=== PATIENT | female | born 1945 | race Caucasian/White ===

== ENCOUNTER 2019-04-14 12:01 | Inpatient (IN) ==
[2019-04-14] MEDS ORDERED: NS 1,000 ML IV ONE ×2 (12:08→14:18)
[2019-04-14 13:28] LABS: BASO# 0.02 X1000 (0.0-0.2); BASO% 0.1 % (0.0-0.8); HEMATOCRIT 34.9 % (37.0-47.0); HEMOGLOBIN 11.2 g/dL (12.0-16.0); IMM GRAN# 0.03 X1000 (0.0-0.04); IMM GRAN% 0.2 % (0.0-0.5); MCH 30.1 PG (27-31); MCHC 32.1 g/dL (33-37); MCV 93.8 FL (81-99); MPV 10.6 FL (7.4-10.4); NEUT# 12.68 X1000 (1.4-6.5); NEUT% 89.7 % (42.2-75.2); PLT 222 X1000 (130-400); RBC 3.72 XMIL (4.2-5.4); RDW 12.7 % (11.5-14.5); WBC 14.13 X1000 (4.8-10.8)
[2019-04-14 13:47] LABS: URINE SOURCE CLEAN CATCH
[2019-04-14 13:48] LABS: ALBUMIN 3.3 g/dL (3.5-5.0); CALCIUM 8.5 mg/dL (8.8-10.2); POTASSIUM 4.1 mmol/L (3.5-5.1); TOTAL BILIRUBIN 0.5 mg/dL (0.20-1.00)
[2019-04-14 13:50] LABS: BILIRUBIN URINE NEGATIVE (NEGATIVE); BLOOD URINE TRACE (NEGATIVE); COLOR YELLOW; GLUCOSE URINE 150 mg/dL (NEGATIVE); KETONE URINE NEGATIVE (NEGATIVE); LEUKOCYTES URINE MODERATE (NEGATIVE); NITRITE URINE NEGATIVE (NEGATIVE); PROTEIN URINE 70 mg/dL (NEGATIVE); TURBIDITY URINE HAZY (CLEAR); UROBILINOGEN URINE NORMAL (NORMAL)
[2019-04-14 13:52] LABS: UR EPITHELIAL CELLS <10 /HPF (<10); URINE BACTERIA 4+ /HPF; URINE RBC <10 /HPF (<10); URINE WBC 20-40 /HPF (<10)
--- NOTE | 2019-04-14 13:58 | Diag Imaging Result Doc PS360 ---
EXAM: CT ABDOMEN/PELVIS W/O CONTRAST 04/14/2019 HISTORY: left side abdominal pain TECHNIQUE: This exam was performed using automated exposure control, adjustment of mA or kV according to patient size, and/or use of iterative reconstruction technique. COMMENT: The current study is compared with the previous examination of 02/18/2019. There are some fibrotic appearing opacities in the lingula which have not changed since the previous study. There is also apparent fibrosis in the medial posterior left costophrenic sulcus. There is some perinephric stranding and particularly on the left side. This is similar in appearance to the previous study. There is no evidence of nephrolithiasis. There is no evidence of hydronephrosis. There is a right adrenal adenoma which has not changed since the previous study. There is some residual contrast medium present in the right colon. There are diverticula in the left colon. There is no evidence of acute diverticulitis. There is no free fluid or free air. There is some gas in the urinary bladder. The appendix is normal in appearance. The regional skeleton is stable in appearance. There has been hysterectomy. IMPRESSION: The possibility of pyelonephritis on the left cannot be excluded otherwise are has been no apparent change since the previous study. Electronically signed by Kar Lucero 04/14/2019 1:55 PM
--- NOTE | 2019-04-14 14:17 | PROVIDER DOCUMENTATION ---
This chart was entered by Amy Sloan Scribe, acting as scribe for Heidy Ayers MD. HPI-Abdominal Pain/GI Problem - General Chief Complaint: Abdominal Pain Stated Complaint: weakness n/v/d abd pain Time Seen by Provider: 04/14/19 12:06 Source: patient, family (daughter), EMS Allergies/Adverse Reactions: Patient Allergies Allergy/AdvReac Type Severity Reaction Status Date / Time amoxicillin trihydrate * Allergy RASH Verified 08/03/18 06:03 [From Amoxil] codeine AdvReac NAUSEA Verified 08/03/18 06:03 propoxyphene HCl * AdvReac NAUSEA/VOMI Verified 08/03/18 06:03 [From Darvon] TING Home Medications: Home Medication List Medication Instructions Recorded Confirmed Last Taken Type Insulin Detemir [Levemir] 80 units SUBQ HS 03/27/14 08/03/18 08/02/18 22:00 History 60 units Biotin [Nail-Ex] 5,000 mcg PO DAILY 02/28/15 08/03/18 08/02/18 20:00 History Levothyroxine Sodium [Levoxyl] 100 mcg PO DAILY 05/08/16 08/03/18 08/02/18 20:00 History Sertraline HCl [Zoloft] 100 mg PO HS 05/08/16 08/03/18 08/02/18 20:00 History Insulin Aspart [Novolog Flexpen] 10 - 20 unit SQ AC 11/10/17 08/03/18 08/02/18 History 12 units Furosemide [Lasix] 1 tab PO DAILY 03/12/18 08/03/18 08/02/18 08:00 History Potassium Chloride [Klor-Con M20] 20 meq PO DAILY 03/12/18 08/03/18 08/02/18 08:00 History Calcium Polycarbophil [Fiber] 625 mg PO DAILY 04/09/18 08/03/18 08/02/18 20:00 History Dexlansoprazole [Dexilant] 60 mg PO QAM 04/09/18 08/03/18 08/02/18 08:00 History Dicyclomine [Bentyl] 2 tab PO BID PRN 04/09/18 08/03/18 04/13/18 08:00 History Iron 65 mg PO DAILY 04/09/18 08/03/18 08/02/18 20:00 History LISINOpril [Prinivil] 10 mg PO DAILY 04/09/18 08/03/18 08/02/18 08:00 History Multivitamin with Minerals [One 1 each PO DAILY 04/09/18 08/03/18 08/02/18 08:00 History Daily Adults] Oxybutynin [Ditropan] 10 mg PO DAILY 04/09/18 08/03/18 08/02/18 20:00 History Ciprofloxacin HCl [Cipro] 750 mg PO BID 07/28/18 08/03/18 08/01/18 History Phenazopyridine HCl [Azo] 95 mg PO DAILY 07/28/18 08/03/18 08/02/18 20:00 History Oxycodone HCl/Acetaminophen 1 ea PO PRN PRN #14 tab 08/03/18 Unknown Rx [Percocet 7.5-325 mg Tablet] - History of Present Illness-ABD Nature of Presenting Problems: 73 yowf presents to the ed via ems with c/o abd pain with n/v/d intermittent since feb. pt sts sx became worse on 04/01/19 and then worsened again today. pt sts last 3 days she has been more fatigued and had difficulty with ambulation. pt on exam is nontoxic in appearance Abdominal Pain Onset Location: reports: generalized abdomen Pain Radiation: reports: LLQ (but worse in LLQ) Quality of Pain: reports: cramping Severity in ED: reports: moderate Onset/Duration: reports: other (NOv) Timing: reports: still present, intermittent, getting worse Activities at Onset: reports: light activity Exposure to sick contacts?: No Modifying Factors: worse with: eating Associated Symptoms: reports: diarrhea, malaise, nausea, vomiting, trouble wa lking. denies: back/neck pain, chest pain, cough, diaphoresis, shortness of breath Last BM: last night Dark Stools Present?: reports: none noticed Rectal Bleeding: reports: none # of Diarrhea Episodes: 4 Rectal Pain: reports: none # of Vomiting Episodes: 2 Emesis Description: reports: other (food taking PO) Bruising or Bleeding Gums?: No Similar Symptoms Previously?: Yes (sx since feb) Recently seen or treated by another doctor?: Yes (pmd) Review of Systems - Adult - REVIEW OF SYSTEMS - ADULT Constitutional: denies: chills, fever Eyes: reports: no symptoms reported Ears, Nose, Mouth & Throat: reports: no symptoms reported Cardiovascular: denies: chest pain, palpitations Respiratory: denies: shortness of breath, wheezing Gastrointestinal: reports: see HPI, abdominal pain, diarrhea, nausea, poor byron etite, vomiting Genitourinary: reports: no symptoms reported Musculoskeletal: denies: back pain, neck pain Integumentary: reports: no symptoms reported Neurological: denies: dizziness/vertigo, headache/migraines Psychiatric: reports: no symptoms reported Endocrine: reports: no symptoms reported Hematologic/Lymphatic: reports: see HPI, low blood count Allergic/Immunologic: reports: no symptoms reported All Other Systems: Reviewed and Negative Past History - Adult - PAST MEDICAL HISTORY-ADULT Review of Records: reports: Old Records Reviewed, Nursing Assessment Review, Medications Reviewed, Social history reviewed & non-contributory. Major Childhood Illnesses: reports: denies history Cardiovascular: reports: blood clots, CHF, HTN, hyperlipidemia, [place] Respiratory: reports: denies history Gastrointestinal: reports: GERD, IBS Obstetrical/Gynecological: reports: uterine/ovarian cancer, other (breast canc er) Genitourinary: reports: denies history Musculoskeletal: reports: other (neuropathy) Neurological: reports: denies history Psychiatric: reports: denies history Endocrine/Immune: reports: Diabetes, thyroid disorder Diabetes Type: Type 2 Diabetes controlled by:: Insulin Dependent Other Conditions: reports: deaf/hard of hearing, other (DVT) Additional History: shingles - PRIOR SURGERIES/PROCEDURES Surgical/Procedure History: reports: cholecystectomy, hysterectomy, tonsillectomy, orthopedic (extremity) (bilateral knees), joint replacement (knee), breast (bilateral mastectomy), back/neck - PRIOR HOSPITALIZATIONS Prior Hospitalizations: reports: for other non-related - IMMUNIZATION STATUS Childhood Immunizations: See Nurse Assessment Flu Vaccine: See Nurse Assessment - FAMILY HISTORY Family History: reviewed, not pertinent - SOCIAL HISTORY Smoking: quit greater than 1 year Substance Use: denies Alcohol Use Frequency: never Living Situation: family Physical Exam-General - PHYSICAL EXAM-ADULT Initial Vital Signs Reviewed: Yes - CONSTITUTIONAL General Appearance: alert, mild distress - EYES Eyes: PERRL/EOMI, pink conjunctivae - HEAD, EARS, NOSE, MOUTH & THROAT HENMT: dental decay. negative: moist mucous membranes (dry oral) - NECK Neck: non-tender, full range of motion, normal inspection - RESPIRATORY Respiratory: chest non-tender, lungs clear, normal breath sounds - CARDIOVASCULAR Cardiovascular: normal peripheral pulses, regular rate, rhythm - CHEST (BREASTS) Chest/Breast: deferred - GASTROINTESTINAL (ABDOMEN) Abdominal Exam: soft, no organomegaly, no pulsatile mass, tenderness (generalized but worse on LLQ). negative: guarding, rigid, rebound - GENITOURINARY Female Genitalia/Pelvic Exam: deferred Rectal Exam: deferred Hemoccult Exam: deferred - LYMPHATIC Lymphatic: no adenopathy - MUSCULOSKELETAL Back Exam: normal inspection, no CVA tenderness, no vertebral tenderness Extremity: normal range of motion, normal capillary refill, pelvis stable, swelling (BLE edema) - SKIN Integumentary: normal color, warm/dry - NEUROLOGIC Neurologic: grossly normal - PSYCHIATRIC Psych/Mental Status: normal mood/affect, normal thought content, normal thought process, oriented x 3 Progress - PLAN OF CARE/RESULTS Progress/Plan/Lab Results: Vital Signs - 8 hr 04/14/19 11:54 Temperature 98.7 F Pulse Rate 76 Respiratory Rate 18 Blood Pressure 152/8 O2 Sat by Pulse Oximetry 93 L Result Diagrams: 04/14/19 13:05 04/14/19 13:05 - REASSESSMENT Reassessment #1 Time Reassessed: 14:09 Status: improving - CT/MRI 1 CT Study: Abdomen, Pelvis Impression: See EMR Report (EXAM: CT ABDOMEN/PELVIS W/O CONTRAST 04/14/2019 HISTORY: left side abdominal pain TECHNIQUE: This exam was performed using automated exposure control, adjustment of mA or kV according to patient size, and/or use of iterative reconstruction technique. COMMENT: The current study is compared with the previous examination of 02/18/2019. There are some fibrotic appearing opacities in the lingula which have not changed since the previous study. There is also apparent fibrosis in the medial posterior left costophrenic sulcus. There is some perinephric stranding and particularly on the left side. This is similar in appearance to the previous study. There is no evidence of nephrolithiasis. There is no evidence of hydronephrosis. There is a right adrenal adenoma which has not changed since the previous study. There is some residual contrast medium present in the right colon. There are diverticula in the left colon. There is no evidence of acute diverticulitis. There is no free fluid or free air. There is some gas in the urinary bladder. The appendix is normal in appearance. The regional skeleton is stable in appearance. There has been hysterectomy. IMPRESSION: The possibility of pyelonephritis on the left cannot be excluded otherwise are has been no apparent change since the previous study. Electronically signed by Kar Lucero 04/14/2019 1:55 PM 04/14/19 1355 Interpreting Physician: Kar Lucero MD Dictated Date/Time: 04/14/19 1350 cc: Heidy Ayers MD; None,PCP) - CONSULTS/PCP/HOSPITALIST Notification #1 *Consult/PCP/Hospitalist*: hospitalist dr mendoza Time Discussed: 14:24 Consult Disposition: Will see in ED, Admit Departure - Departure Date of Disposition Decision: 04/14/19 Time of Disposition Decision: 14:16 DIAGNOSIS: Pyelonephritis Disposition: ADMITTED INPATIENT 09 Certified Medical Emergency: Emergent Condition: Good Referrals and Follow-Ups: None,PCP [Primary Care Provider] - - Critical Care Note This patient required my direct & personal management of CC.: No Attestation - Physician/ BYRON Attestation Patient care was provided by Advanced Practice Provider:: No The physician spent face to face time with patient:: Yes Advanced Practice Provider documentation review:: Supervising physician onsite and consulted in the evaluation and care of this patient. The physician did have a face to face encounter with the patient. This chart was documented by the indicated scribe, (Amy Sloan Scribe) and accurately reflects the services I performed and decisions made by me, Heidy Ayers MD, as attested by the provider's signature.
[2019-04-14] MEDS: ROCEPHIN 1 GM in NS 50 ML IV SCH (14:30)
[2019-04-14 15:19] LABS: INR 1.22; PROTIME 16.1 Seconds (11.0-16.0)
[2019-04-14 15:21] LABS: PTT 67.2 Seconds (22.3-41.8)
[2019-04-14] MEDS ORDERED: ZOFRAN IV PRN (16:58)
[2019-04-14] MEDS ORDERED: TYLENOL PO PRN (17:03)
[2019-04-14] MEDS ORDERED: NS 1,000 ML ONE (17:20)
[2019-04-14] MEDS: HUMALOG (PARKWAY) SUBQ SCH (20:32)
[2019-04-14] MEDS: PROTONIX IV SCH (20:32)
[2019-04-14] MEDS: NS 1,000 ML IV SCH (23:30)
[2019-04-15] MEDS: NS 1,000 ML IV SCH (02:15)
--- NOTE | 2019-04-15 03:23 | HISTORY AND PHYSICAL ---
CHIEF COMPLAINT: Abdominal pain, nausea, vomiting, diarrhea. HISTORY OF PRESENT ILLNESS: This is a 73-year-old female with a history of diabetes mellitus, hypertension, hypothyroid, and gastroesophageal reflux disease. She presents to the emergency room complaining of nausea, vomiting, diarrhea and abdominal pain that started about Clare night. She stated that it became worse on the , subsided somewhat, but over the last 3 days it has increased. She has become fatigued and she is having difficulty with ambulation. She said she has lost her balance and fell twice. She denied any injury. She states that the abdominal pain increases after eating. She describes this as a crampy type pain. It is a 6/10 at its worst and 1-2/10 at its best. She denied any black or bloody vomitus or stools. PAST MEDICAL HISTORY: 1. Diabetes mellitus. 2. Hypertension. 3. Hypothyroid. 4. History of DVT with chronic anticoagulation. 5. Bilateral breast cancer and uterine cancer. 6. Gastroesophageal reflux disease. 7. CAD. PAST SURGICAL HISTORY: Cholecystectomy, hysterectomy, tonsillectomy, bilateral knee replacements, bilateral mastectomy, back surgery. SOCIAL HISTORY: She denies any alcohol, tobacco, or illicit drug use. ALLERGIES: Amoxicillin gives her hives. Codeine causes nausea. Propoxyphene, nausea and vomiting. HOME MEDICATIONS: A list will be obtained by the nursing staff. Once verified, we will review and restart as appropriate. REVIEW OF SYSTEMS: Discussed with patient with pertinent positives as stated in HPI. She denied any syncope or dizziness, any chest pain or palpitations, any black or bloody vomitus or stools, any constipation. PHYSICAL EXAMINATION: GENERAL: This is a 73-year-old female who is lying on the stretcher in the emergency room in no distress. VITAL SIGNS: Blood pressure is 143/86 with a heart rate of 76, respirations are 20, temperature is 98.9 degrees with room air saturations 96 to 97 percent. EYES: Pupils equal, round, react to light. EOMs are intact. Sclerae anicteric. HENT: Head is normocephalic, atraumatic. Mucous membranes are moist. NECK: Supple. Trachea midline. CARDIOVASCULAR: Regular rate and rhythm. S1 and S2 appreciated. Calves are nontender bilateral with peripheral pulses palpable. PULMONARY: Breath sounds are clear with no increased work of breathing noted. Chest rises and falls symmetric with respiration. GASTROINTESTINAL: Abdomen is soft, nondistended, with bowel sounds in all 4 quadrants. NEUROLOGIC: She is alert and oriented x3. EXTREMITIES: Right hand is warm with good PMS. SKIN: Warm and dry. IMAGING: CT of the abdomen pelvis without contrast revealed possibility of pyelonephritis on the left cannot be excluded. LABORATORIES: WBC is 14 with hemoglobin 11.2, hematocrit 34.9, and platelets of 222,000. Sodium 134, potassium 4.1, BUN 29, creatinine 1 with a glucose of 341. Clean-catch urine revealed moderate white blood cells, moderate leukocytes with 20 to 40 microscopic white blood cells and 4+ bacteria. Urine culture voided is pending. ASSESSMENT AND PLAN: 1. Pyelonephritis. Blood cultures have been obtained. She has been given Rocephin. We will continue this. The patient and her daughter state that the patient has been evaluated by Dr. Watson and on exam he stated that her urethra is up inside her vagina and that voided urine cultures in the past have been contaminated. They have returned positive but cath cultures returned negative, so we will place a Ibarra catheter and get a cath urine culture also. 2. Leukocytosis secondary to #1 as stated above. 3. Acute kidney injury. We will have IV hydration, place a Ibarra to ensure her bladder is emptying. We will renal dose medications as appropriate. 4. Diabetes mellitus. Pattern blood glucose with sliding scale insulin. 5. Hypertension. We will continue home medications as appropriate. 6. Hypothyroid. Continue medications. 7. Gastroesophageal reflux disease, aware. We will continue her medications. We will continue with gentle hydration. Further treatments pending hospital course. Dictated by MICHAEL Billings for Margarito Jimenez MD cc: MICHAEL Billings MD
--- NOTE | 2019-04-15 03:29 | HISTORY AND PHYSICAL ---
ADDENDUM: Patient presented to the hospital noting that she has been nauseated, vomiting off and on for the past 2 weeks. States she has not eaten anything for the past 7 days secondary to her nausea and vomiting. On exam, it does appear as though she has pyelonephritis. She has diffuse abdominal pain throughout her right upper quadrant and bilateral lower quadrants. However, patient also states that if you touch her anywhere, it hurts. We are going to admit her to the hospital, IV antibiotics, fluids, pain control and follow. cc: Margarito Jimenez MD
[2019-04-15] MEDS: PROTONIX IV SCH ×2 (04:38→18:17)
[2019-04-15 06:33] LABS: BASO# 0.02 X1000 (0.0-0.2); BASO% 0.2 % (0.0-0.8); EOS# 0.03 X1000 (0.0-0.7); EOS% 0.3 % (0.0-10.0); HEMATOCRIT 30.6 % (37.0-47.0); HEMOGLOBIN 9.5 g/dL (12.0-16.0); IMM GRAN# 0.03 X1000 (0.0-0.04); IMM GRAN% 0.3 % (0.0-0.5); LYMPH% 6.2 % (20.5-51.1); MCH 29.5 PG (27-31); MONO# 1.07 X1000 (0.11-0.59); MONO% 9.5 % (1.7-9.3); MPV 10.6 FL (7.4-10.4); NEUT% 83.5 % (42.2-75.2); PLT 194 X1000 (130-400); RBC 3.22 XMIL (4.2-5.4); RDW 12.5 % (11.5-14.5); WBC 11.25 X1000 (4.8-10.8)
[2019-04-15 06:56] LABS: ALBUMIN 2.6 g/dL (3.5-5.0); CREATININE 1.1 mg/dL (0.5-0.9); POTASSIUM 3.6 mmol/L (3.5-5.1); TOTAL BILIRUBIN 0.3 mg/dL (0.20-1.00); TOTAL PROTEIN 6.3 g/dL (6.3-8.3)
[2019-04-15] MEDS: HUMALOG (PARKWAY) SUBQ SCH ×4 (07:12→22:00)
[2019-04-15] MEDS ORDERED: DEXILANT PO SCH (09:00)
[2019-04-15] MEDS: DILAUDID IV PRN (09:47)
[2019-04-15] MEDS: DIOVAN PO SCH (09:48)
[2019-04-15] MEDS: LASIX PO SCH ×2 (09:48→22:07)
[2019-04-15] MEDS: HYDROCHLOROTHIAZIDE PO SCH (09:48)
[2019-04-15] MEDS: KLOR-CON PO SCH ×2 (09:48→22:01)
[2019-04-15] MEDS: ROCEPHIN 1 GM in NS 50 ML IV SCH (14:43)
--- NOTE | 2019-04-15 16:49 | Diag Imaging Result Doc PS360 ---
EXAM: CHEST-PORTABLE HISTORY: For placement TECHNIQUE: Single view COMPARISON: 01/03/2019 FINDINGS: The lungs are well expanded. The heart is not enlarged. No change in the right subclavian portacatheter. The vessels are not distended. There are no infiltrates. No effusion identified. IMPRESSION: No acute abnormality Electronically signed by Emiliano Frye 04/15/2019 4:47 PM
[2019-04-15] MEDS: SODIUM CHLORIDE 0.9% INJ SCH (18:17)
[2019-04-15] MEDS ORDERED: LEVEMIR SUBQ SCH (21:00)
[2019-04-15] MEDS: LEVEMIR INSULIN *HA SUBQ SCH (22:00)
[2019-04-15] MEDS: ZOLOFT PO SCH (22:01)
[2019-04-15] MEDS: SYNTHROID PO SCH (22:01)
[2019-04-15] MEDS: FERROUS SULFATE PO SCH (22:01)
[2019-04-15] MEDS: DITROPAN PO SCH (22:01)
--- NOTE | 2019-04-15 22:53 | PROGRESS NOTE ---
DATE: 04/15/2019 SUBJECTIVE: Patient notes that she feels terrible. States that she is starving and upset that she has not eaten since she has been here although she also has not eaten for the 6 days prior to coming in as well. PHYSICAL EXAMINATION: Vital Signs: Temperature 99 degrees, pulse 84, respiratory rate 18, BP 116/42. General: Patient is awake. He is in no current respiratory distress. Pleasant. HEENT: Normocephalic. Neck: Supple. Cardiovascular: Regular rate. Chest: Clear and nonlabored. Abdomen: Soft, nondistended, appears nontender. Extremities: Moves all extremities. ASSESSMENT: 1. Pyelonephritis. 2. Bilateral lower quadrant abdominal pain, appears to be improving. 3. Leukocytosis. 4. Acute kidney injury. 5. Hyponatremia. 6. Diabetes with mild hyperglycemia. PLAN: We are going to continue patient in the hospital. Continue antibiotics, fluids. We are going to attempt to advance her diet. Continue her home medications. Further orders as needed. cc: Margarito Jimenez MD
[2019-04-16] MEDS: DILAUDID IV PRN ×2 (01:43→23:44)
[2019-04-16] MEDS: PROTONIX IV SCH ×2 (04:35→16:46)
[2019-04-16] MEDS: HUMALOG (PARKWAY) SUBQ SCH ×4 (06:45→21:51)
[2019-04-16] MEDS: LASIX PO SCH ×2 (08:51→21:51)
[2019-04-16] MEDS: KLOR-CON PO SCH ×2 (08:51→21:50)
[2019-04-16] MEDS: HYDROCHLOROTHIAZIDE PO SCH (08:51)
[2019-04-16] MEDS: DIOVAN PO SCH (08:51)
[2019-04-16] MEDS: ROCEPHIN 1 GM in NS 50 ML IV SCH (14:01)
--- NOTE | 2019-04-16 15:21 | PROGRESS NOTE ---
DATE: 04/16/2019 SUBJECTIVE: Patient has no new complaints. States she is still nauseated, still has abdominal pain, but thankfully her breakfast tray has been fully eaten. OBJECTIVE: On physical examination, temperature 98.9 degrees, pulse 67, respiratory rate 18, BP 117/56.General: Patient is awake. She is in no distress. States she was just barely able to eat today, although her plate is cleaned. HEENT: Normocephalic. Neck: Supple. Cardiovascular: Regular rate. Chest: Clear. Abdomen: Soft. Extremities: Moves all extremities. ASSESSMENT: 1. Pyelonephritis. 2. Gram-negative mahsa urinary tract infection. 3. Leukocytosis. 4. Acute kidney injury, resolved. 5. Sepsis. 6. Hypertension. 7. Hypothyroidism. 8. Diabetes. PLAN: We are going to continue patient in the hospital, continue to follow. Hopefully she can discharge home over the next 1 or 2 days if her symptoms continue to improve. cc: Margarito Jimenez MD
[2019-04-16] MEDS: SODIUM CHLORIDE 0.9% INJ SCH (16:47)
[2019-04-16] MEDS: ZOLOFT PO SCH (21:49)
[2019-04-16] MEDS: FERROUS SULFATE PO SCH (21:50)
[2019-04-16] MEDS: SYNTHROID PO SCH (21:50)
[2019-04-16] MEDS: LEVEMIR INSULIN *HA SUBQ SCH ×2 (21:51→22:03)
[2019-04-16] MEDS: DITROPAN PO SCH (21:51)
[2019-04-16] MEDS: NORCO-7.5 PO PRN (21:52)
[2019-04-17] MEDS: PROTONIX IV SCH ×2 (05:32→17:10)
[2019-04-17] MEDS: HUMALOG (PARKWAY) SUBQ SCH ×4 (06:04→21:41)
[2019-04-17 06:47] LABS: HEMATOCRIT 31.7 % (37.0-47.0); HEMOGLOBIN 10.1 g/dL (12.0-16.0); MCH 29.7 PG (27-31); MCHC 31.9 g/dL (33-37); MCV 93.2 FL (81-99); MPV 10.7 FL (7.4-10.4); RBC 3.4 XMIL (4.2-5.4); RDW 12.4 % (11.5-14.5); WBC 9.19 X1000 (4.8-10.8)
[2019-04-17 07:11] LABS: AGAP 14; ALBUMIN 2.7 g/dL (3.5-5.0); ALKALINE PHOSPHATASE 113 U/L (32-104); BUN 28 mg/dL (8-22); CALCIUM 8.3 mg/dL (8.8-10.2); CHLORIDE 97 mmol/L (98-107); COSMO 291; CREATININE 0.8 mg/dL (0.5-0.9); ESTIMATED GFR > 60; GLUCOSE 216 mg/dL (70-104); GOT 42 U/L (10-30); GPT 22 U/L (10-36); MAGNESIUM 1.5 mg/dL (1.5-2.7); POTASSIUM 3.4 mmol/L (3.5-5.1); SODIUM 140 mmol/L (136-145); TCO2 29 mmol/L (25-35); TOTAL BILIRUBIN < 0.15 mg/dL (0.20-1.00); TOTAL PROTEIN 6.4 g/dL (6.3-8.3)
[2019-04-17] MEDS ORDERED: DIFLUCAN PO PRN (09:22)
[2019-04-17] MEDS: HYDROCHLOROTHIAZIDE PO SCH (09:25)
[2019-04-17] MEDS: DIOVAN PO SCH (09:25)
[2019-04-17] MEDS: LASIX PO SCH ×2 (09:26→21:36)
[2019-04-17] MEDS: KLOR-CON PO SCH ×2 (09:26→21:36)
[2019-04-17] MEDS: VALTREX PO SCH ×2 (11:58→21:36)
[2019-04-17] MEDS: SOLU-MEDROL IV SCH (12:00)
--- NOTE | 2019-04-17 13:33 | Diag Imaging Result Doc PS360 ---
EXAM: KUB ABDOMEN HISTORY: ? constipation TECHNIQUE: Single view COMPARISON: 03/26/2013 FINDINGS: No bowel obstruction. There is a small amount stool throughout the colon. No organomegaly. Mild scoliosis with moderate degenerative spine changes. IMPRESSION: [id number] constipation. Electronically signed by Emiliano Frye 04/17/2019 1:30 PM
--- NOTE | 2019-04-17 16:45 | PROGRESS NOTE ---
DATE: 04/17/2019 SUBJECTIVE: Patient notes that she has intense unrelenting left upper quadrant abdominal pain. States she was able to eat. Stated that she ate like a sign writer hand yesterday. Does complain of some constipation. Notes she has not had a bowel movement in 2 days, although as previously noted she had not eaten for 6 days prior to coming to the hospital. PHYSICAL: Temperature 98, pulse 68, respiratory 18, BP 132/63.General: Patient is in no current respiratory distress. She is not ill appearing, non tachypneic and does not have outward signs nor symptoms of pain on observation. HEENT: Normocephalic. Neck: Supple. CV: Regular rate. Chest: Clear, nonlabored. Abdomen: Soft, tender to extreme light palpation from the epigastric region radiating to left upper quadrant, left flank pain. Nontender in the bilateral lower quadrants or right upper quadrant. Extremities: Moves all extremities. Neurologic: No focal changes. ASSESSMENT: 1. Left upper quadrant pain certainly consistent with shingles although patient oddly enough notes that she has had shingles 3 different times in [address]. 2. Pyelonephritis with Escherichia coli. 3. Escherichia coli septicemia. 4. Diabetes. 5. Hypertension. 6. Fibromyalgia. PLAN: We will continue patient in the hospital, continue antibiotics. Will switch her to Levaquin as her blood and urine culture both are sensitive. We will start steroids today as well as Valtrex. Although she has no rash her skin is exquisitely tender to very light touching which would be consistent with shingles. Will check a KUB and will follow. cc: Margarito Jimenez MD
[2019-04-17] MEDS: SODIUM CHLORIDE 0.9% INJ SCH (17:10)
[2019-04-17] MEDS: LACTULOSE PO SCH (17:10)
[2019-04-17] MEDS: NORCO-7.5 PO PRN ×2 (17:16→23:42)
[2019-04-17] MEDS: ZOLOFT PO SCH (21:35)
[2019-04-17] MEDS: DITROPAN PO SCH (21:36)
[2019-04-17] MEDS: FERROUS SULFATE PO SCH (21:36)
[2019-04-17] MEDS: SYNTHROID PO SCH (21:36)
[2019-04-17] MEDS: LEVEMIR INSULIN *HA SUBQ SCH (21:40)
[2019-04-18] MEDS: DILAUDID IV PRN (01:24)
[2019-04-18] MEDS: SOLU-MEDROL IV SCH (01:29)
[2019-04-18] MEDS: DULCOLAX PR SCH ×3 (01:30→23:18)
[2019-04-18] MEDS: LACTULOSE PO SCH ×4 (06:18→23:18)
[2019-04-18] MEDS: HUMALOG (PARKWAY) SUBQ SCH ×4 (06:39→23:27)
[2019-04-18] MEDS ORDERED: SOLU-MEDROL IV SCH ×2 (06:39→06:54)
[2019-04-18] MEDS: PROTONIX IV SCH ×2 (06:49→16:24)
[2019-04-18] MEDS ORDERED: SOLU-MEDROL IV ONE (08:57)
[2019-04-18] MEDS: VALTREX PO SCH ×2 (09:22→23:15)
[2019-04-18] MEDS: HYDROCHLOROTHIAZIDE PO SCH (09:22)
[2019-04-18] MEDS: DIOVAN PO SCH (09:22)
[2019-04-18] MEDS: LEVAQUIN PO SCH (09:23)
[2019-04-18] MEDS: KLOR-CON PO SCH ×2 (09:23→23:14)
[2019-04-18] MEDS: LASIX PO SCH ×2 (09:23→23:16)
[2019-04-18 10:39] LABS: HEMATOCRIT 31.2 % (37.0-47.0); MCH 29.9 PG (27-31); MCHC 32.1 g/dL (33-37); MCV 93.1 FL (81-99); RBC 3.35 XMIL (4.2-5.4); RDW 12.4 % (11.5-14.5); WBC 12.23 X1000 (4.8-10.8)
[2019-04-18 10:59] LABS: AGAP 13; ALKALINE PHOSPHATASE 97 U/L (32-104); BUN 27 mg/dL (8-22); CALCIUM 8.8 mg/dL (8.8-10.2); CHLORIDE 97 mmol/L (98-107); COSMO 289; CREATININE 0.8 mg/dL (0.5-0.9); ESTIMATED GFR > 60; GLUCOSE 151 mg/dL (70-104); GOT 16 U/L (10-30); GPT 17 U/L (10-36); MAGNESIUM 1.5 mg/dL (1.5-2.7); POTASSIUM 3.4 mmol/L (3.5-5.1); SODIUM 141 mmol/L (136-145); TCO2 31 mmol/L (25-35); TOTAL PROTEIN 7.1 g/dL (6.3-8.3)
[2019-04-18] MEDS: SODIUM CHLORIDE 0.9% INJ SCH (16:24)
--- NOTE | 2019-04-18 19:41 | PROGRESS NOTE ---
DATE: 04/18/2019 SUBJECTIVE: The patient has a multitude of issues this morning. She states that her left flank pain and left-sided epigastric pain has completely resolved, but states she wants to stop Valtrex and Solu-Medrol because she is scared of them although her symptoms resolved after starting these medications. She still has abdominal pain, notes she has had a mild small bowel movement. She states that she was able to ambulate in the [place] yesterday. OBJECTIVE: Vital Signs: Temperature 97.3 degrees, pulse 16, respiratory rate 18, BP 114/88. General: The patient is in no current respiratory distress, pleasant to talk with. HEENT: Normocephalic. Neck: Supple. Cardiovascular: Regular rate. Chest: Clear and nonlabored. No wheezing. Abdomen: Soft, nondistended, nontender. Extremities: Moves all extremities. No edema. Neurologic: No focal changes. ASSESSMENT: 1. Shingles. We are going to give her 1 more dose of Solu-Medrol today and stop. We will continue Valtrex. 2. Escherichia coli pyelonephritis. 3. Escherichia coli bacteremia. 4. Sepsis secondary to her Escherichia coli bacteremia, resolved. 5. Diabetes. Blood sugars actually are excellent, currently in the 70s and 100 range. 6. Leukocytosis, resolved. 7. Hyponatremia, stable. PLAN: We are going to continue the patient in the hospital. Continue Levaquin p.o. Give her 1 more dose of Solu-Medrol. Continue Valtrex. Continue physical therapy. Hopefully if blood sugars are stable she can discharge home in the a.m. cc: Margarito Jimenez MD
[2019-04-18] MEDS: DITROPAN PO SCH (23:14)
[2019-04-18] MEDS: ZOLOFT PO SCH (23:15)
[2019-04-18] MEDS: FERROUS SULFATE PO SCH (23:15)
[2019-04-18] MEDS: NORCO-7.5 PO PRN (23:16)
[2019-04-18] MEDS: SYNTHROID PO SCH (23:16)
[2019-04-18] MEDS: LEVEMIR INSULIN *HA SUBQ SCH (23:17)
[2019-04-19] MEDS: PROTONIX IV SCH (05:53)
[2019-04-19 06:34] VITALS: BP 141/62
[2019-04-19] MEDS: HUMALOG (PARKWAY) SUBQ SCH ×2 (06:44→11:23)
[2019-04-19] MEDS: DIOVAN PO SCH (11:21)
[2019-04-19] MEDS: KLOR-CON PO SCH (11:21)
[2019-04-19] MEDS: DULCOLAX PR SCH (11:22)
[2019-04-19] MEDS: LASIX PO SCH (11:22)
[2019-04-19] MEDS: HYDROCHLOROTHIAZIDE PO SCH (11:22)
[2019-04-19] MEDS: LEVAQUIN PO SCH (11:22)
[2019-04-19] MEDS: VALTREX PO SCH (11:22)
[2019-04-19] MEDS ORDERED: PROTONIX PO SCH (21:00)
--- NOTE | 2019-04-20 09:28 | DISCHARGE SUMMARY ---
ADMISSION DATE: 04/14/2019 DISCHARGE DATE: 04/19/2019 ADMITTING DIAGNOSES: 1. Pyelonephritis. 2. Leukocytosis. 3. Acute kidney injury. 4. Diabetes mellitus. 5. Hypertension. 6. Hypothyroidism. 7. Gastroesophageal reflux disease. DISCHARGE DIAGNOSES: 1. Shingles. 2. Escherichia coli pyelonephritis. 3. Escherichia coli bacteremia. 4. Sepsis secondary to Escherichia coli bacteremia, resolved. 5. Diabetes mellitus. 6. Leukocytosis, resolved. 7. Hyponatremia, resolved. PROCEDURES AND FINDINGS: CT of the abdomen and pelvis without contrast performed on 04/14/2019 showed the possibility of a pyelonephritis on the left cannot be excluded. Chest x-ray that was done on 04/15/2019 showed no acute abnormality. Abdominal x-ray that was done on 04/17/2019 showed mild- to-moderate constipation. HOSPITAL COURSE: Ms. Luz is a 73-year-old female who presented to the emergency room complaining of nausea, vomiting, diarrhea, and abdominal pain that started around 03/30/2019 and became worse around 04/01. It did subside somewhat, but 3 days prior to admission, it had increased. The patient had become fatigued and was having difficulty ambulating. She had lost her balance and fell twice. She describes it as a cramping type pain that increased after eating. CT was obtained of the abdomen and pelvis without contrast done which revealed a possible pyelonephritis. Urinalysis did show a moderate amount of leukocytes, positive white blood cells, and positive bacteria. The patient was started on IV Rocephin. Urine culture was obtained. Ibarra catheter was placed. The patient was started on IV fluid for hydration for hyponatremia. Urine culture was noted to be gram-negative rods. The patient was started on Levaquin p.o. Acute kidney injury was resolved. The patient's skin was very tender to the touch that was consistent with shingles. The patient was started on steroids and Valtrex for left flank pain and she described that she had had shingles multiple times in different places. Her left flank pain did subside with the steroids and with Valtrex. Patient is ambulating in the hallway. She is doing much better. The patient is being discharged home today. LABORATORY DATA: White blood cell count 12.23, hemoglobin 10, and hematocrit 31.2. Sodium 141, potassium 3.4, BUN 27, creatinine 0.8, and glucose 151. Blood cultures did show E. coli. Urine culture did show E. Coli, both with sensitivities to Levaquin. DISCHARGE MEDICATIONS: 1. Diflucan 100 mg p.o. daily. 2. Lasix 40 mg p.o. b.i.d. 3. Hydrocodone APAP 7.5/325 p.o. q.8 hours p.r.n. 4. Levemir 100 units subcutaneous at bedtime. 5. Iron 65 mg p.o. at bedtime. 6. Levaquin 500 mg p.o. daily. 7. Levothyroxine 100 mcg p.o. at bedtime. 8. Oxybutynin 10 mg p.o. at bedtime. 9. Potassium chloride 20 mEq p.o. b.i.d. 10. Sertraline HCL 150 mg p.o. at bedtime. 11. Valsartan/hydrochlorothiazide 160/25 mg 1 tablet p.o. daily. 12. Biotin 5000 mcg p.o. b.i.d. 13. Dexilant 60 mg p.o. every morning. 14. Lomotil 1 tablet p.o. t.i.d. DISCHARGE DIET: The patient is to resume healthy heart diet as tolerated. DISCHARGE ACTIVITY: Patient is to resume activity as tolerated. DISCHARGE DISPOSITION: Patient is to discharge home with self care. She is to follow up with her primary care physician within 1 to 2 weeks. She is to refrain from any smoking or alcohol. She is to notify her primary care physician for any questions or concerns. Dictated by MICHAEL Leon for Margarito Jimenez MD cc: Margarito Jimenez MD Primary Care Physician [facility]ITAL[facility]
--- NOTE | 2019-04-20 16:05 | DISCHARGE SUMMARY ---
ADMISSION DATE: 04/14/2019 DISCHARGE DATE: 04/19/2019 DISCHARGE DIAGNOSES: 1. Escherichia coli bacteremia. 2. Escherichia coli septicemia. 3. Escherichia coli urinary tract infection. 4. Pyelonephritis. 5. Diabetes. 6. Hypertension. 7. Hypothyroidism. 8. Chronic pain. 9. Fibromyalgia. CONSULTATIONS: None. PROCEDURES: None. BRIEF HOSPITAL COURSE: The patient is a 73-year-old female who presented to the hospital treated in the usual fashion, placed on antibiotics, breathing treatments, oxygen. Thankfully, she continued to improve. She did have diffuse pain that was difficult to treat because it seemed migratory at times. She was noted to be mildly constipated, was given medication, lactulose. She also grew E coli in her blood as well as in her urine. Thankfully it was sensitive to Levaquin. Discussed with her that she needs to be on Levaquin for 6 weeks and will need to follow up outpatient with her primary care. TIME SPENT: 30 minutes was spent in total care. No other changes were performed on her home medications. cc: Margarito Jimenez MD
== END 2019-04-19 11:47 | disposition home or self-care (01) | DRG 872 ==
LOC: P.ED 12:01 → P.MEDSURG 17:39
PROVIDERS: ATTEND Family Medicine